=== PATIENT | female | born 1970 | race Caucasian/White ===

== ENCOUNTER 2017-12-19 05:23 | Day surgery (SDC) | payer OTHER ==
[2017-12-04 11:03] VITALS: BMI 32.8
[2017-12-19 07:41] LABS: INR 0.97 (0.83-1.09); PROTHROMBIN TIME (PATIENT) 11.5 SEC (9.7-13.0)
[2017-12-19 07:45] LABS: ACTIVATED PTT 31.4 SECONDS (25.2-36.5)
[2017-12-19] MEDS ORDERED: MIDAZOLAM HCL 2 MG/2 ML SINGLE DOSE VIAL ONE (08:49)
[2017-12-19] MEDS ORDERED: ceFAZolin SODIUM 1 GM VIAL ONE (08:49)
[2017-12-19] MEDS ORDERED: DEXAMETHASONE SOD PHOSPHATE 4 MG/1 ML VIAL ONE (08:49)
[2017-12-19] MEDS ORDERED: PROPOFOL 20 ML ONE (08:49)
[2017-12-19] MEDS ORDERED: LIDOCAINE HCL/PF 2% SDV 5ML VIAL ONE (08:49)
[2017-12-19] MEDS ORDERED: SODIUM CHLORIDE 0.9% P/F 10 ML VIAL IJ ONE (08:49)
[2017-12-19] MEDS ORDERED: ONDANSETRON 4 MG/2 ML VIAL IVPUSH PRN (09:22)
[2017-12-19] MEDS ORDERED: oxyCODONE HCL 5 MG TABLET PO PRN ×2 (09:22)
[2017-12-19] MEDS ORDERED: VASOPRESSIN 20 UNITS/ML VIAL IV ONE (09:23)
[2017-12-19] MEDS ORDERED: LACTATED RINGERS SOLUTION 1,000 ML IV SCH (09:30)
[2017-12-19] MEDS ORDERED: ACETAMINOPHEN 1000 MG/100 ML VIAL (NON FORMULARY) IVPB ONE (09:46)
--- NOTE | 2017-12-19 09:47 | HP ---
History & Physical Update - History History: No Change - Physical Physical: No Change - Assessment Assessment: No Change - Plan Plan: No Change
[2017-12-19] MEDS ORDERED: ceFAZolin SODIUM 1 GM VIAL IVPB ONE (09:58)
[2017-12-19] MEDS ORDERED: IBUPROFEN 800 MG/8 ML IJ IVPB SCH (10:00)
[2017-12-19] MEDS ORDERED: DEXTROSE 5%-0.45% SALINE 1,000 ML IV SCH (10:00)
[2017-12-19] MEDS ORDERED: KETOROLAC TROMETHAMINE 30 MG/1 ML VIAL ONE (10:18)
[2017-12-19] MEDS ORDERED: BACITRACIN 15 GM TUBE TOPICAL OINTMENT ONE (10:20)
--- NOTE | 2017-12-19 11:23 | OP ---
DATE OF OPERATION: 12/19/2017 PREOPERATIVE DIAGNOSES: Stress urinary incontinence and cystocele. POSTOPERATIVE DIAGNOSES: Stress urinary incontinence and cystocele. PROCEDURE: Suburethral sling placement and cystocele repair with cystoscopy. SURGEON: Karel Villarreal MD SPECIALTY PERSON: No assistant professor of english. ANESTHESIA: General. ESTIMATED BLOOD LOSS: 100 mL. SPECIMEN: Anterior vaginal mucosa. DRAINS: A Woodward catheter. PREOPERATIVE INDICATIONS: The patient is a 47-year-old female with stress urinary incontinence and bladder prolapse. She comes to the OR today for repair. OPERATION: The patient was brought to the OR, placed on the table in the supine position, given general anesthesia and IV antibiotics and placed in the modified lithotomy position. The groin was prepped and draped sterilely. Timeout was performed. A Woodward catheter was placed. The vaginal mucosa overlying the cystocele was identified and marked with a marking pen. This was injected with pitressin to hydrodissect and then an incision was made in the midline of the vaginal mucosa overlying the bladder. The perivesical tissues were dissected off the vaginal mucosa sharply with a Metzenbaum scissors back to the arcus tendineus. The excess mucosa was excised on both sides. The defect was then closed in 2 layers with 2-0 Vicryl suture. This affected a lifting of the bladder into a more anatomical position. was then done. An incision was made over the middle portion of the urethra in the midline and the vaginal mucosa was sharply dissected from the periurethral tissues in a lateral fashion towards the obturator canal. The bladder was emptied and the mini-sling was then applied using trocars bilaterally control from the vaginal mucosa to the obturator canal. No buttonholing of the vaginal mucosa was seen. Cystoscopy was then performed. No evidence of perforation was seen. The bladder otherwise was normal. Both UOs were seen with clear efflux and peristalsis. The scope was then removed. The sling was then applied, tightened so it was flat over the urethra with no tension. The excess suture was removed and the incision was closed again in 2 layers with 2-0 Vicryl suture. The Woodward catheter and packing were left in place. The patient was woken up. Anuj [id number]
[2017-12-19] MEDS ORDERED: oxyCODONE HCL 5 MG TABLET PO ONE (13:30)
[2017-12-19] MEDS ORDERED: oxyCODONE HCL 5 MG TABLET ONE (13:33)
[2017-12-19 14:29] VITALS: TEMP 97.5
[2017-12-19 14:30] VITALS: BP 110/75; PULSE 79
--- NOTE | 2017-12-21 17:24 | PATH ---
Surgical Pathology Report Patient Name: DIAMOND RICE [facility]. Rec. #: [id number] /Age/Gender: 1970 (Age: 47) / F Account: [id number] Location: [facility] SURGICAL Taken: 12/19/2017 Received: 12/19/2017 Reported: 12/21/2017 Physicians: Karel Villarreal M.D. Specimen(s) Received ANTERIOR VAGINAL MUCOSA Clinical History Cystocele, stress incontinence Final Diagnosis ANTERIOR VAGINAL MUCOSA, EXCISION: VAGINAL SQUAMOUS MUCOSA WITHOUT SIGNIFICANT PATHOLOGIC FINDINGS. Electronically Signed Blanka Mandel M.D. Gross Description Received in formalin labeled "anterior vaginal mucosa," are 2 bentley portions of mucosal tissue measuring 2.7 x 1.0 x 0.3 and 3.5 x 1.2 x 0.2 cm. No discrete lesions are identified. Dispensing Operator sections are submitted in one cassette. /12/20/2017 saudi/12/20/2017
== END 2017-12-19 14:25 | disposition home or self-care (01) ==
LOC: JASU-SURG 05:23
PROVIDERS: ATTEND Urology
PROC: 0TSD0ZZ Reposition Urethra, Open Approach (ICD-10-PCS; 2017-12-19)
PROC: 0JQC0ZZ Repair Pelvic Region Subcutaneous Tissue and Fascia, Open Approach (ICD-10-PCS; principal; 2017-12-19 09:00)
PROC: 0TJB8ZZ Inspection of Bladder, Via Natural or Artificial Opening Endoscopic (ICD-10-PCS; 2017-12-19 09:00)
DX: N39.3 Stress incontinence (female) (male) (principal); N81.10 Cystocele, unspecified
CPT/HCPCS: 36415; 84703; 85610; 85730; 88302-TC; 94760; J0131

== ENCOUNTER 2018-03-01 05:19 | Day surgery (SDC) | payer OTHER ==
[2018-02-28 17:00] VITALS: BMI 32.8
[~2018-03-01 05:19] MED LIST: BUPIVACAINE HCL/PF (5 MG/ML) 30 ML VIAL IJ ONE; ceFAZolin SODIUM 1 GM VIAL IVPB ONE
[2018-03-01] MEDS ORDERED: BUPIVACAINE HCL/PF 0.5% (5MG/ML) 10 ML VIAL ONE (07:23)
[2018-03-01] MEDS ORDERED: PROPOFOL 20 ML ONE ×2 (07:54)
[2018-03-01] MEDS ORDERED: fentaNYL CITRATE 250 MCG/5 ML VIAL ONE (07:54)
[2018-03-01] MEDS ORDERED: DEXAMETHASONE SOD PHOSPHATE 4 MG/1 ML VIAL ONE (07:54)
[2018-03-01] MEDS ORDERED: MIDAZOLAM HCL 2 MG/2 ML SINGLE DOSE VIAL ONE (07:54)
[2018-03-01] MEDS ORDERED: ROCURONIUM BROMIDE 50 MG/5 ML VIAL ONE (07:54)
--- NOTE | 2018-03-01 08:08 | HP ---
History & Physical Update - Physical Physical: No Change - Assessment Assessment: No Change - Plan Plan: No Change (No change since office visit on 02/14/18. No h/o dvt/pe.)
[2018-03-01] MEDS ORDERED: ceFAZolin SODIUM 1 GM VIAL IVPB ONE ×2 (09:20)
[2018-03-01] MEDS ORDERED: BUPIVACAINE HCL/PF (5 MG/ML) 30 ML VIAL IJ ONE ×2 (09:42)
[2018-03-01] MEDS ORDERED: DESFLURANE GAS 240 ML BOTTLE IH ONE (09:44)
[2018-03-01] MEDS ORDERED: NEOSTIGMINE METHYLSULFATE 0.5 MG/ML - 10 ML MDV ONE (10:30)
--- NOTE | 2018-03-01 10:58 | OP ---
Operative Note - Note: Operative Date: 03/01/18 Pre-Operative Diagnosis: Chronic cholecystitis with cholelithiasis Operation: Laparoscopic cholecystectomy Findings: gallbladder with 2 cm stone Post-Operative Diagnosis: Same as Pre-op Surgeon: Bob Cueva Director Oracle: Gen Hart Anesthesia: General Specimens Removed: gallbladder Estimated Blood Loss (mls): 5 Operative Report Dictated: Yes
[2018-03-01] MEDS ORDERED: KETOROLAC TROMETHAMINE 30 MG/1 ML VIAL ONE (11:08)
[2018-03-01] MEDS ORDERED: ONDANSETRON 4 MG/2 ML VIAL IVPUSH PRN (11:09)
[2018-03-01] MEDS ORDERED: oxyCODONE HCL 5 MG TABLET PO PRN (11:09)
[2018-03-01] MEDS ORDERED: KETOROLAC TROMETHAMINE 30 MG/1 ML VIAL IVPUSH ONE (11:11)
[2018-03-01] MEDS ORDERED: ePHEDrine SULFATE 50 MG/1 ML AMPULE ONE (11:11)
[2018-03-01] MEDS ORDERED: LACTATED RINGERS SOLUTION 1,000 ML IV SCH (11:15)
--- NOTE | 2018-03-01 11:16 | SURG ---
Surgery Senior Speech Pathologist Note Senior Speech Pathologist: Gen Hart PA-C (Suzy) Date of Service: 03/01/18 Diagnosis: Chronic cholecystitis with cholelithiasis Procedure: Laparoscopic cholecystectomy I was present for the entirety of the operative procedure. For further detail, please refer to operative report. Visit type - Case Type Case Type: Scheduled - Emergency Emergency Visit: No - New patient This patient is new to me today: Yes Date on this admission: 03/01/18 - Critical Care Critical Care patient: No
--- NOTE | 2018-03-01 11:47 | OP ---
DATE OF OPERATION: 03/01/2018 LOCATION: Ambulatory surgery. PROCEDURE: Laparoscopic cholecystectomy. PREOPERATIVE DIAGNOSIS: Chronic cholecystitis with cholelithiasis. POSTOPERATIVE DIAGNOSIS: Chronic cholecystitis with cholelithiasis. SURGEON: Bob Cueva MD GEOLOGY TEACHER: EVA Hart ANESTHESIA: General endotracheal. FINDINGS AND PROCEDURE: This is a 48-year-old female who presents with chronic right upper quadrant pain radiating to the back aggravated by fatty meals. The patient has minimal right upper quadrant tenderness. An ultrasound showed a large gallstone with normal-size common duct, so the patient was advised elective cholecystectomy, and consent was obtained after discussing the risks, benefits, and alternatives of the procedure. The patient was brought to the operating room and placed in supine position. General endotracheal anesthesia was administered. The abdomen was prepped and draped in the usual sterile fashion. Using 0.05% Marcaine, local anesthesia was administered to the proposed incision site. The peritoneal cavity was entered using the Optiview technique where a 5-mm umbilical incision using a 5-mm 0-degree scope inserted in a 5-mm optical port. Pneumoperitoneum was established. The patient was then placed in reverse Trendelenburg left side down position. An 11-mm port was inserted at the subxiphoid region, and two 5-mm ports were inserted at the right subcostal region at the midclavicular and anterior axillary lines. The gallbladder fundus was visualized, grasped, and retracted superiorly. The flimsy omental adhesions to the gallbladder body were taken down bluntly using the [place] dissector. The infundibulum was grasped and retracted inferolaterally to expose the triangle of Calot. The visceral peritoneum covering the triangle was scored using the hook dissector connected to the monopolar cautery. A window was created between the gallbladder bed, the liver, and behind the cystic artery to create the critical view of safety. The cystic duct and cystic artery were carefully dissected and isolated. Both structures were then clipped at 3 points followed by transection leaving 2 clips at the cystic duct and cystic artery stumps. The gallbladder was then resected from its bed in antegrade fashion using the hook dissector connected to monopolar cautery. An inadvertent puncture of the gallbladder fundus occurred, and the bile was suctioned. The 2-cm large gallstone was clearly palpated and visualized. The rest of the bile in Morison's pouch as well as the right hepatic gutter was suctioned , and the area was copiously irrigated with sterile normal saline until the return was clear. The gallbladder resection was then completed. The gallbladder was placed in an Endobag and extracted via the subxiphoid incision, which was slightly enlarged to accommodate the large gallstone. The peritoneal cavity was again inspected, and it was noted to be free of inadvertent injury. Further irrigation of Morison's pouch and right hepatic gutter was done until the return was clear. The pneumoperitoneum was evacuated, and the ports were removed. The wounds were closed with 1 [id number] Vicryl 0 suture for the fascia of the subxiphoid incision and subcuticular Biosyn 4-0 sutures for the skin. The wound closure was reinforced with Dermabond. The patient was successfully extubated and transferred to the post anesthesia care unit in satisfactory condition. Estimated blood loss was about 5 mL. Wound class clean contaminated. The patient received 2 g of Ancef prior to the start of the procedure. Anuj [id number]
[2018-03-01 12:28] VITALS: TEMP 97.8
[2018-03-01] MEDS ORDERED: ONDANSETRON 4 MG/2 ML VIAL ONE (12:45)
[2018-03-01] MEDS ORDERED: oxyCODONE HCL 5 MG TABLET ONE (12:46)
[2018-03-01 15:42] VITALS: BP 120/73; PULSE 83
--- NOTE | 2018-03-04 14:32 | PATH ---
Surgical Pathology Report Patient Name: DIAMOND RICE [facility]. Rec. #: [id number] /Age/Gender: 1970 (Age: 48) / F Account: [id number] Location: [facility] Taken: 03/01/2018 Received: 03/01/2018 Reported: 03/04/2018 Physicians: Bob Cueva M.D. Specimen(s) Received GALLBLADDER Clinical History Acute cholecystitis Final Diagnosis GALLBLADDER, LAPAROSCOPIC CHOLECYSTECTOMY: CHRONIC FOCAL ACUTE CHOLECYSTITIS WITH CHOLELITHIASIS. Electronically Signed Blanka Mandel M.D. Gross Description Received in formalin, labeled "gallbladder," is a 6.0 x 2.8 x 1.5 cm. gallbladder with a 0.2 cm. in length portion of cystic duct attached. The outer surface is bentley-pink with a large defect in the fundus and varies from smooth to shaggy. The lumen contains a 2.5 cm in greatest dimension green-black, spherical cholelith. There is no bile present within lumen. The mucosa is bentley-red and focally eroded. The wall of the gallbladder measures 0.1 cm. in thickness. Head Mechanic sections are submitted in one cassette. 03/01/201803/01/2018
== END 2018-03-01 15:45 | disposition home or self-care (01) ==
LOC: JASU-SURG 05:19
PROVIDERS: ATTEND Surgery
PROC: 0FT44ZZ Resection of Gallbladder, Percutaneous Endoscopic Approach (ICD-10-PCS; principal; 2018-03-01 08:00)
DX: K80.10 Calculus of gallbladder with chronic cholecystitis without obstruction (principal)
CPT/HCPCS: 84703; 88304-TC; 94760

== ENCOUNTER → 2021-06-15 | Day surgery (SDC) | payer OTHER | END | disposition home or self-care (01) | LOC: JMAMMO-SUR 10:10 | PROVIDERS: ATTEND Physician Assistant | PROC: 0HBU3ZX Excision of Left Breast, Percutaneous Approach, Diagnostic (ICD-10-PCS; principal; 2021-06-15) | DX: N60.32 Fibrosclerosis of left breast (principal); N64.89 Other specified disorders of breast; N63.23 Unspecified lump in the left breast, lower outer quadrant | CPT/HCPCS: 19083; 87899; 88305-TC; A4648 ==